=== PATIENT | female | born 1995 | race Caucasian/White ===

== ENCOUNTER 2016-12-29 23:29 | Emergency (ER) | payer MEDICAID ==
[~2016-12-29] VITALS: Ht 160 cm; Wt 59.9 kg
--- NOTE | 2016-12-29 23:31 | NUR ---
Patient to ER bed 4 to gown for evaluation. Side rails up. Report given to Roselia HERRING.
[2016-12-29 23:40] VITALS: BP 117/79; PULSE 68; RESP 16; TEMP 97.7; O2SAT 100
--- NOTE | 2016-12-29 23:42 | NUR ---
ER MD Jones at bedside for evaluation
--- NOTE | 2016-12-29 23:43 | NUR ---
Patient to ER stating that she noticed yesterday evening swollen left upper eyelid. States pain 02/27, also C/O mild headache non-raditing 03/29. Denies blurry vision or double vision. No eye reddness or drainage. AAOx4, unlabored breathing, no signs of acute distress.
--- NOTE | 2016-12-29 23:55 | NUR ---
Patient not in bed, ER, waiting room or restroom. ER MD Jones & charge aware.
[2016-12-29] MEDS ORDERED: NS 500 ML IV SCH (23:57)
[2016-12-29] MEDS ORDERED: NACL 0.9% 1,000 ML IV SCH (23:57)
[2016-12-30] MEDS ORDERED: CLINDAMYCIN 300 MG in D5W 50 ML IV ONE ×2
[2016-12-30] MEDS ORDERED: MORPHINE 2 MG/ML INJ. SYRINGE IVP ONE
--- NOTE | 2016-12-30 00:01 | NUR ---
Patient not in bed, ER, waiting room or restroom. ER MD Jones & charge aware.
--- NOTE | 2016-12-30 00:09 | NUR ---
ELOPED - Patient not in bed, ER, waiting room or restroom. ER MD Jones & charge aware.
[2016-12-30] MEDS ORDERED: NS 500 ML IV ONE (00:15)
== END 2016-12-30 00:09 | disposition left against medical advice (07) ==
LOC: SED 23:29
DX: L03.213 Periorbital cellulitis (principal); F17.210 Nicotine dependence, cigarettes, uncomplicated; Z53.20 Procedure and treatment not carried out because of patient's decision for unspecified reasons
CPT/HCPCS: 99281